=== PATIENT | female | born 1960 | race Hispanic/Latino ===

== ENCOUNTER 2016-12-11 12:20 | Outpatient (CLI) | payer OTHER ==
--- NOTE | 2016-12-11 15:58 | Mammography Report ---
STEREOTACTIC VACUUM ASSISTED BIOPSY WITH CLIP PLACEMENT RIGHT: 12/11/16 12:20:00 CLINICAL: Mammographic asymmetry. COMPARISON:12/04/16 and 11/09/16 mammograms. FINDINGS: Consent for the procedure was obtained. The mammographic asymmetry at 12 o'clock was targeted with stereotactic guidance. The skin was prepped with Betadine and anesthetized with 1% lidocaine. 2% lidocaine with epinephrine was injected for deeper anesthesia. 8 gauge Mammotome biopsy was performed from a CC from above approach through a small dermatotomy. Prefire and post-fire images demonstrated satisfactory positioning of the probe. Samples were obtained around the clock face. A clip was placed at the biopsy site and the placement was confirmed with a radiograph. The probe was removed and hemostasis was achieved with mild pressure. A sterile dressing was applied. The patient tolerated the procedure well and there were no apparent complications. Two view mammogram demonstrated concordant position of the biopsy clip and a 2 cm hematoma superior to the clip. IMPRESSION: Uncomplicated stereotactic biopsy with clip placement right breast.
--- NOTE | 2016-12-11 15:59 | Mammography Report ---
RIGHT DIGITAL DIAGNOSTIC MAMMOGRAM: 12/11/16 12:20:00 CLINICAL: For clip placement immediately status post stereotactic biopsy. COMPARISON:12/04/16 FINDINGS: A biopsy clip is now identified at the site of the previously identified asymmetry. A 2 cm hematoma is centered approximately 2 cm cephalad to the clip on the lateral view. IMPRESSION: Concordant clip placement status post stereotactic biopsy. BI-RADS CATEGORY: 4--Suspicious Pathology pending.
== END 2016-12-11 12:21 | disposition home or self-care (01) ==
LOC: SPVWC 12:20
PROVIDERS: ATTEND Surgery
DX: N60.31 Fibrosclerosis of right breast (principal); N60.32 Fibrosclerosis of left breast; R92.1 Mammographic calcification found on diagnostic imaging of breast
CPT/HCPCS: 19081; 88305; 88341; 88342; G0206

== ENCOUNTER 2016-12-30 06:51 | Day surgery (SDC) | payer OTHER ==
--- NOTE | 2016-12-30 08:19 | Anesthesia Consultation ---
Anesthesia Consult and Med Hx Date of service: 12/30/16 - Airway Anesthetic Teeth Evaluation: Good ROM Head & Neck: Adequate Mental/Hyoid Distance: Adequate Mallampati Class: Class III Intubation Access Assessment: Possibly Difficult - Pre-Operative Health Status ASA Pre-Surgery Classification: ASA2 Proposed Anesthetic Plan: General - Pulmonary Hx Sleep Apnea: No (snoring) - Central Nervous System Hx Psychiatric Problems: Yes (depression) - Other Systems Hx Alcohol Use: No Hx Substance Use: No Hx Cancer: No (breast lesion)
--- NOTE | 2016-12-30 08:20 | Anesthesia Day of Surgery ---
Anesthesia Day of Surgery - Day of Surgery Patient Examined: Yes Patient H&P Reviewed: Yes Patient is NPO: Yes
[2016-12-30] MEDS ORDERED: PEPCID IV NR (09:00)
[2016-12-30] MEDS ORDERED: VERSED IV NR (09:00)
[2016-12-30] MEDS ORDERED: NACL 0.9% 1000 ML 1,000 ML IV SCH (09:00)
[2016-12-30] MEDS ORDERED: XYLOCAINE 1% 20 mL ONE ×2 (09:16→09:59)
--- NOTE | 2016-12-30 09:51 | Short Stay Summary ---
Short Stay Documentation Date of service: 12/30/16 - History H&P: obtained from office - Allergies and Medications Current Medications: Allergies Sulfa (Sulfonamide Antibiotics) Allergy (Verified 12/23/16 08:42) Rash Home Medications Medication Instructions Recorded Confirmed Last Taken Type FLUoxetine [PROzac] 20 mg PO QDAY 12/23/16 12/30/16 12/29/16 History Multivitamin [Multiple Vitamins] 1 each PO DAILY 12/23/16 12/30/16 12/29/16 History HYDROcodone/APAP 5-325 [[place] 1 each PO Q6HR PRN #30 tablet 12/30/16 Unknown Rx 5/325] Active Medications Famotidine (Pepcid) 20 mg IV PREOP NR Stop: 12/30/16 12:00 Sodium Chloride (Nacl 0.9% 1000 Ml) 1,000 mls @ 100 mls/hr IV DIRECT ELIZABETH Vancomycin HCl (Vancomycin/Ns 1 Gm/250 Ml) 1 gm in 250 mls @ 167.007 mls/hr IV PREOP NR PRN Reason: Protocol Stop: 12/30/16 10:01 Midazolam HCl (Versed) 2 mg IV PREOP NR Stop: 12/30/16 23:59 - Brief post op/procedure progress note Date of procedure: 12/30/16 Pre-op diagnosis: Right breast ADH Post-op diagnosis: same Procedure: Right needle localization excisional biopsy Anesthesia: GETA Findings: Wire and clip present within radiograph specimen Surgeon: CRYSTAL MELENDEZ Counter Hop: DAVID CURRY Estimated blood loss: minimal Pathology: list (right breast excisional biopsy) Specimen disposition: to lab Condition: stable - Disposition Condition at discharge: Good Disposition: DC-01 TO HOME OR SELFCARE Short Stay Discharge Plan Activity: other (no heavy lifting) Wound: other (keep incision clean and dry; may shower in 24h hours; no baths, pools or lakes) Follow up with: ALTHEA LAM MD [Primary Care Provider] - 7 Days CRYSTAL MELENDEZ MD [Staff Physician] - 7 Days Prescriptions: HYDROcodone/APAP 5-325 [[place] 5/325] 1 each PO Q6HR PRN #30 tablet PRN Reason: Pain
--- NOTE | 2016-12-30 09:54 | Operative Report ---
Operative Report Operative Report: Date of Service: December 30, 2016 Preoperative diagnosis: Right breast ADH of the upper outer quadrant Postoperative diagnosis: Same Procedure: Right needle localization excisional biopsy Surgeon: Nadine Parson M.D. Asst.: Aline Box Md Anesthesia: General Findings: Radiograph specimen with clip and wire present Complications: None Estimated blood loss: Minimal Disposition: PACU in good condition Indications for operative procedure: This is a 56 year old lady with recent right breast stereotactic breast biopsy findings of ADH around the 12:00 position. Recommendations were to proceed with excisional biopsy. She wished to proceed with the above procedure. Procedure in detail: Radiology placed right needle localization. Patient was taken to the operating room and was laid supine. Gen. anesthesia was administered. The right breast was prepped and draped in normal sterile operative fashion. The wire was identified. Timeout was performed. An upper inner quadrant incision was made with a 15 blade knife and dissection taken down to the subcutaneous tissues. First began with raising of the medial flap taken down posteriorly and removal of the wire from the skin. Then began raising of the most lateral flap followed by raising of the superior flap and inferior flap. The wire was not encountered. The specimen was then removed from the breast cavity posteriorly with the aide of the Bovie cautery. Specimen was appropriately marked and sent to radiology with clip and wire in good placement. Specimen was then sent to pathology. Hemostatsis was obtained. This posterior breast tissue was then approximated and closed using interrupted 3-0 Vicryl and skin closed using a running 4-0 Monocryl followed by skin affix. She tolerated surgery very well and was awake anesthesia without any complications and transferred to PACU in good condition.
[2016-12-30] MEDS ORDERED: SUBLIMAZE ONE (09:57)
[2016-12-30] MEDS ORDERED: DIPRIVAN 10 MG/ML IV ONE (09:58)
[2016-12-30] MEDS ORDERED: MARCAINE 0.25% INFILTRATI ONE ×2 (09:59→10:03)
[2016-12-30] MEDS ORDERED: VANCOMYCIN/NS 1 GM/250 ML 1 GM/250 ML BAG IV NR (10:00)
[2016-12-30] MEDS ORDERED: WATER FOR IRRIG STERILE IR ONE (10:03)
[2016-12-30] MEDS ORDERED: XYLOCAINE 1% 20 mL INFILTRATI ONE (10:03)
[2016-12-30] MEDS ORDERED: ePHEDrine SULFATE ONE (10:28)
[2016-12-30] MEDS ORDERED: DILAUDID ONE (10:52)
--- NOTE | 2016-12-30 11:37 | Mammography Report ---
Right breast needle localization procedure. History: Biopsy proven right breast cancer. Procedure: The patient's skin surface was prepped using sterile technique. Local anesthetic was injected into the skin. See mammographic guidance, a 7.5 cm Salas needle was advanced into the region of interest at the site of the biopsy clip. Satisfactory localization was accomplished and a hookwire left in place. The patient tolerated the procedure well clinically and was sent to the OR in satisfactory condition. BI-RADS code: 6.
[2016-12-30 12:26] VITALS: BP 149/79
--- NOTE | 2016-12-31 10:51 | Mammography Report ---
SPECIMEN RADIOGRAPH RIGHT BREAST: 12/30/16 06:51:00 CLINICAL: Surgical excision. FINDINGS: The targeted lesion with a biopsy clip and a hookwire are identified within the specimen. IMPRESSION: Excision of the targeted lesion.
[2017-01-01] MEDS ORDERED: VERSED ONE (17:03)
[2017-01-01] MEDS ORDERED: HEPARIN/NS 5000 UNIT/500ML(CATH LAB) 500 ML IR ONE (17:03)
[2017-01-01] MEDS ORDERED: XYLOCAINE 2% INFILTRATI ONE (17:04)
[2017-01-01] MEDS ORDERED: SUBLIMAZE ONE (17:04)
== END 2016-12-30 12:24 | disposition home or self-care (01) ==
LOC: OR 06:51
PROVIDERS: ATTEND Surgery
DX: N60.81 Other benign mammary dysplasias of right breast (principal); F32.9 Major depressive disorder, single episode, unspecified; Z88.2 Allergy status to sulfonamides
CPT/HCPCS: 19125; 19281; 76098; 88307; J1170; J2250; J2704; J3010; J3370; J7030

== ENCOUNTER 2017-02-01 09:40 | Outpatient (CLI) | payer OTHER ==
--- NOTE | 2017-02-02 11:51 | Magnetic Resonance Report ---
BILATERAL BREAST MRI WITHOUT AND WITH CONTRAST: 02/01/17 09:40:00 CLINICAL: Status post recent surgical excision for a focal atypical ductal hyperplasia found at stereotactic biopsy. Final surgical pathology: Benign breast tissue with papilloma and proliferative fibrocystic changes including usual ductal hyperplasia and apocrine metaplasia. Benign surgical margins. COMPARISON:11/09/16 and 12/11/16 mammograms. TECHNIQUE: Axial 1.0-mm T1 without, axial high resolution 2.0-mm T2 and axial 1.0-mm dynamic Vibrant high-resolution postcontrast T1 fat saturation sequences on a 1.5 [place] magnet. The examination was performed with an 8 channel dedicated [place] breast coil. Post processing with CAD and subtraction was performed on an [employer] workstation. 18.0 cc of Multihance was injected without incident via a right antecubital vein 22-gauge INT for the contrast portion of the exam. Consent was obtained prior to the administration of the contrast. FINDINGS: Right: Minimal background parenchymal enhancement. A postsurgical seroma is located posterior at 12 o'clock and measures approximately 6.2 x 4.0 x 1.6 cm. Benign enhancement at the margin of the seroma. No mass or suspicious enhancement of the right breast. No suspicious right axillary or right internal mammary lymph nodes. Left: Minimal background parenchymal enhancement. No mass or suspicious enhancement of the left breast. No suspicious left axillary or left internal mammary lymph nodes. IMPRESSION: Benign postsurgical changes in the right breast and otherwise negative study. BI-RADS 2 -- Benign
== END 2017-02-01 09:41 | disposition home or self-care (01) ==
LOC: SPVIMAG 09:40
PROVIDERS: ATTEND Surgery
DX: N60.81 Other benign mammary dysplasias of right breast (principal); N64.89 Other specified disorders of breast; Z98.890 Other specified postprocedural states
CPT/HCPCS: 0159T; A9577; C8908; 77059

== ENCOUNTER 2017-11-09 13:01 | Outpatient (CLI) | payer OTHER ==
--- NOTE | 2017-11-09 13:34 | Mammography Report ---
BILATERAL DIGITAL SCREENING MAMMOGRAM with CAD: 11/09/17 13:01:00 CLINICAL: Routine screening.Status post right benign surgical excision. COMPARISON:06/21/17 right mammogram and 11/09/16 bilateral mammogram. FINDINGS: There are scattered areas of fibroglandular density.Benign right inner postsurgical scar. No mass, architectural distortion or suspicious calcifications. IMPRESSION: No mammographic evidence of malignancy. BI-RADS CATEGORY: 2 -- Benign RECOMMENDATION: Routine mammographic screening in one year. COMMENT: Patient follow-up letters are generated by our [employer] application.
== END 2017-11-09 13:02 | disposition home or self-care (01) ==
LOC: SPVWC 13:01
PROVIDERS: ATTEND Surgery
DX: Z12.31 Encounter for screening mammogram for malignant neoplasm of breast (principal)
CPT/HCPCS: 77067